=== PATIENT | female | born 1955 | race American Indian/Alaskan Native ===

== ENCOUNTER 2019-10-21 06:38 | Emergency (ER) | payer MEDICARE, OTHER ==
[2019-10-21 08:33] LABS: Basophils % (Auto) 0.7 % (0.0-1.8); Eosinophils % (Auto) 0.1 % (0.0-4.3); Hematocrit 39.6 % (30.3-42.9); Hemoglobin 12.6 gm/dl (10.1-14.3); Lymphocytes # (Auto) 1.7 K/mm3 (1.2-5.4); Lymphocytes % (Auto) 27.5 % (13.4-35.0); Mean Corpuscular HGB Conc 32 % (30-34); Mean Corpuscular Volume 72 fl (79-97); Monocytes # (Auto) 0.3 K/mm3 (0.0-0.8); Monocytes % (Auto) 4.6 % (0.0-7.3); Platelet Count 216 K/mm3 (140-440); Red Blood Count 5.51 M/mm3 (3.65-5.03); Red Cell Distribution Width 15.2 % (13.2-15.2)
--- NOTE | 2019-10-21 08:37 | XRay Report ---
CHEST 1 VIEW INDICATION: tachycardia. COMPARISON: None. FINDINGS: Support devices: None. Heart: Normal. Lungs/Pleura: No acute pulmonary or pleural findings. IMPRESSION: 1. No acute findings. Signer Name: Kyle Velazco MD Signed: 10/21/2019 8:33 AM Workstation Name: [id number]
[2019-10-21 08:44] LABS: BUN/Creatinine Ratio 12; Blood Urea Nitrogen 27 mg/dL (7-17); Calcium 9.8 mg/dL (8.4-10.2); Hemolysis Index 4
[2019-10-21] MEDS ORDERED: ACETAMINOPHEN 325 MG TAB PO ONE (08:56)
[2019-10-21 08:59] LABS: Bacteria,Urine 1+ /HPF (Negative); Bilirubin,Urine NEG (Negative); Blood,Urine NEG (Negative); Color,Urine Yellow (Yellow); Hyaline Casts,Urine 1 /LPF; Mucus,Urine 1+ /HPF; Urobilinogen,Urine < 2.0 mg/dL (<2.0)
[2019-10-21 09:21] LABS: Amphetamine Screen,Urine PRESUMPTIVE NEGATIVE; Cannabinoid Screen,Urine PRESUMPTIVE NEGATIVE; Cocaine Screen,Urine PRESUMPTIVE NEGATIVE; Methadone Screen,Urine PRESUMPTIVE NEGATIVE; Opiate Screen,Urine PRESUMPTIVE NEGATIVE
[2019-10-21 09:35] LABS: Benzodiazepines Screen,Urine PRESUMPTIVE POSITIVE
--- NOTE | 2019-10-21 09:45 | Emergency Department Report ---
ED General Adult HPI - General Chief complaint: Altered Mental Status Stated complaint: SUICIDAL THOUGHTS Time Seen by Provider: 10/21/19 07:43 Source: patient, family, EMS Mode of arrival: Stretcher Limitations: Altered Mental Status - History of Present Illness Initial comments: Patient presents with . reports patient with episode of altered mental status confusion this morning. Reports patient was answering questions with weird replies. Reports similar episodes when patient rode a train back to [place] where there are from. Reports that episode was thought to be related to UTI. Reports living in [facility]" for approximately 2 months. Reports patient unable to fill rx for fibromyalgia norco and ativan for anxiety since living here for 2 months because they have not established primary care. Reports he heard that ativan could cause confusion. Reports patient anxious. Denies drugs/alcohol. Denies SI/HI. Denies trauma. Reports hx of CKD with hx of polycystic kidney disease. reports patient has one kidney. Severity scale (0 -10): 9 - Related Data Home Medications Medication Instructions Recorded Confirmed Last Taken Valsartan [Diovan] 160 mg PO QDAY 07/28/14 07/28/14 Unknown Previous Rx's Medication Instructions Recorded Last Taken Type HYDROcodone/ACETAMINOPHEN [[place] 1 each PO Q6HR #20 tablet 07/28/14 Unknown Rx 5/325 Tablet] oxyCODONE /ACETAMINOPHEN [Percocet 1 tab PO Q6HR PRN #20 tablet 11/16/14 Unknown Rx 5/325 mg] HYDROcodone/APAP 5-325 [[place] 1 each PO Q6HR PRN #20 tablet 01/09/15 Unknown Rx 5/325] Promethazine [Phenergan] 25 mg PO Q6H PRN #30 tablet 01/09/15 Unknown Rx Allergies Allergy/AdvReac Type Severity Reaction Status Date / Time No Known Allergies Allergy Verified 08/30/13 14:42 ED Review of Systems ROS: Stated complaint: SUICIDAL THOUGHTS Other details as noted in HPI Other: GENERAL: No weight change, fatigue, fever, chills, or night sweats SKIN: No changes in skin or hair, no itching, no rashes, no jaundice HEAD: No trauma EYES: No blurriness, tearing, itching, acute visual loss, conjunctival discoloration, or scleral icterus EARS: No hearing loss, tinnitus, vertigo, or earache NOSE: No rhinorrhea, stuffiness, sneezing, itching, or epistaxis MOUTH: No bleeding gums, hoarseness, sore throat, or swelling CARDIAC: No new murmur, chest pain, palpitations, dyspnea on exertion, orthopnea, PND, or edema RESPIRATORY: No shortness of breath, wheeze, cough, sputum production, hemoptysis GI: No abdominal pain, nausea, vomiting, dysphagia, diarrhea, constipation, hematemesis, melena, hematochezia URINARY: No frequency, urgency, polyuria, dysuria, hematuria, or incontinence MUSCULOSKELETAL: No muscle weakness, joint stiffness, decrease in range of motion, redness, swelling NEUROLOGIC: Altered mental status. confusion. No headache, syncope, loss of sensation, numbness, tingling, tremors, weakness, paralysis, seizures HEMATOLOGIC: No anemia, easy bruising, bleeding, petechiae, or purpura ENDOCRINE: No hot or cold intolerance, sweating, polyuria, polydipsia or, polyphagia no thyroid problems PSYCHIATRIC: Anxiety. ED Past Medical Hx - Past Medical History Hx Hypertension: Yes Hx Kidney Stones: Yes Hx Psychiatric Treatment: Yes (Anxiety) Additional medical history: fibromyalgia, Polycystic Kidney disease - Surgical History Additional Surgical History: right kidney removed. hysterectomy. hernia repair - Social History Smoking Status: Never Smoker Substance Use Type: None - Medications Home Medications: Home Medications Medication Instructions Recorded Confirmed Last Taken Type HYDROcodone/ACETAMINOPHEN [[place] 1 each PO Q6HR #20 tablet 07/28/14 Unknown Rx 5/325 Tablet] Valsartan [Diovan] 160 mg PO QDAY 07/28/14 07/28/14 Unknown History oxyCODONE /ACETAMINOPHEN [Percocet 1 tab PO Q6HR PRN #20 tablet 11/16/14 Unknown Rx 5/325 mg] HYDROcodone/APAP 5-325 [[place] 1 each PO Q6HR PRN #20 tablet 01/09/15 Unknown Rx 5/325] Promethazine [Phenergan] 25 mg PO Q6H PRN #30 tablet 01/09/15 Unknown Rx ED Physical Exam - General Limitations: Altered Mental Status - Other Other exam information: GENERAL: Patient in no acute distress HEAD: Normocephalic, atraumatic EYES: PERRLA, EOM intact, no scleral icterus, no conjunctival hemorrhage, visual nguyễn and acuity wnl NOSE: No tenderness, discharge, sinus tenderness MOUTH: No erythema, bleeding, exudate HEART: Regular rate and rhythm, no murmur, S1-S2 are auscultated, no edema, pulses are symmetric LUNGS: No respiratory distress. Bilateral breath sounds, No tachypnea, No retractions, No wheezing, rales, rhonchi ABDOMEN: Normal bowel sounds, abdomen soft, no tenderness, no rebound, no guarding, no distention, no masses, no CVA tenderness MUSCULOSKELETAL: Normal joint range of motion, no redness, no swelling, no tenderness NEUROLOGIC: GCS 15, Alert and Oriented x3, Cranial nerves intact, normal sensation, normal strength, no cerebellar deficit, NIHSS 0 PSYCHIATRIC: Anxious. No homicidal or suicidal ideation, no hallucinations SKIN: Skin is warm and dry, no wounds, no rashes NEUROLOGIC: normal gait ED Course Vital Signs 10/21/19 06:53 Temperature 99.4 F Pulse Rate 98 H Respiratory 18 Rate Blood Pressure 137/75 O2 Sat by Pulse 95 Oximetry ED Medical Decision Making - Lab Data Result diagrams: 10/21/19 07:54 10/21/19 07:54 Laboratory Results - last 24 hr 10/21/19 10/21/19 10/21/19 07:54 07:54 08:13 WBC 6.2 RBC 5.51 H Hgb 12.6 Hct 39.6 MCV 72 L MCH 23 L MCHC 32 RDW 15.2 Plt Count 216 Lymph % (Auto) 27.5 [place] % (Auto) 4.6 Eos % (Auto) 0.1 Baso % (Auto) 0.7 Lymph # 1.7 [place] # 0.3 Eos # 0.0 Baso # 0.0 Seg Neutrophils % 67.1 Seg Neutrophils # 4.1 Sodium 134 L Potassium 4.2 Chloride 96.8 L Carbon Dioxide 16 L Anion Gap 25 BUN 27 H Creatinine 2.3 H Estimated GFR 26 BUN/Creatinine Ratio 12 Glucose 84 POC Glucose 77 Calcium 9.8 Troponin T < 0.010 Urine Color Urine Turbidity Urine pH Ur Specific [place] Urine Protein Urine Glucose (UA) Urine Ketones Urine Blood Urine Nitrite Urine Bilirubin Urine Urobilinogen Ur Leukocyte Esterase Urine WBC (Auto) Urine RBC (Auto) U Epithel Cells (Auto) Urine Bacteria (Auto) Hyaline Casts Urine Mucus Urine Opiates Screen Urine Methadone Screen Ur Barbiturates Screen Ur Phencyclidine Scrn Ur Amphetamines Screen U Benzodiazepines Scrn Urine Cocaine Screen U Marijuana (THC) Screen Drugs of Abuse Note 10/21/19 10/21/19 08:41 08:41 WBC RBC Hgb Hct MCV MCH MCHC RDW Plt Count Lymph % (Auto) [place] % (Auto) Eos % (Auto) Baso % (Auto) Lymph # [place] # Eos # Baso # Seg Neutrophils % Seg Neutrophils # Sodium Potassium Chloride Carbon Dioxide Anion Gap BUN Creatinine Estimated GFR BUN/Creatinine Ratio Glucose POC Glucose Calcium Troponin T Urine Color Yellow Urine Turbidity Clear Urine pH 5.0 Ur Specific [place] 1.019 Urine Protein 100 mg/dl Urine Glucose (UA) Neg Urine Ketones 20 Urine Blood Neg Urine Nitrite Neg Urine Bilirubin Neg Urine Urobilinogen < 2.0 Ur Leukocyte Esterase Tr Urine WBC (Auto) 4.0 Urine RBC (Auto) 3.0 U Epithel Cells (Auto) 1.0 Urine Bacteria (Auto) 1+ Hyaline Casts 1 Urine Mucus 1+ Urine Opiates Screen Presumptive negative Urine Methadone Screen Presumptive negative Ur Barbiturates Screen Presumptive negative Ur Phencyclidine Scrn Presumptive negative Ur Amphetamines Screen Presumptive negative U Benzodiazepines Scrn Presumptive positive Urine Cocaine Screen Presumptive negative U Marijuana (THC) Screen Presumptive negative Drugs of Abuse Note Disclamer - EKG Data When compared to previous EKG there are: no significant change - Radiology Data Radiology results: report reviewed - Medical Decision Making Patient comfortable. Updated with results. Recommend possibly other anxiolytics besides benzos. Recommend close outpatient follow up. Plan discharge with outpatient follow up. Return if any worsening. Critical care attestation.: If time is entered above; I have spent that time in minutes in the direct care of this critically ill patient, excluding procedure time. ED Disposition Clinical Impression: Anxiety Altered mental status Qualifiers: Altered mental status type: unspecified Qualified Code(s): R41.82 - Altered mental status, unspecified Medication reaction Qualifiers: Encounter type: initial encounter Qualified Code(s): T50.905A - Adverse effect of unspecified drugs, medicaments and biological substances, initial encounter CKD (chronic kidney disease) Qualifiers: Chronic kidney disease stage: unspecified stage Qualified Code(s): N18.9 - Chronic kidney disease, unspecified Disposition: DC-01 TO HOME OR SELFCARE Is pt being admited?: No Condition: Stable Instructions: Altered Mental Status (ED), Chronic Kidney Disease (ED), Anxiety (ED) Referrals: KENYATTA CHING MD [Other] - 2-3 Days [facility] [Outside] - 2-3 Days [facility] [Outside] - 2-3 Days MARIYA PAINTING MD [Staff Physician] - 2-3 Days DON PAPPAS MD [Staff Physician] - 2-3 Days
[2019-10-21 10:01] VITALS: BP 132/72
== END 2019-10-21 10:03 | disposition home or self-care (01) ==
LOC: ED 06:38
DX: F41.9 Anxiety disorder, unspecified (principal); R41.82 Altered mental status, unspecified; T50.905A Adverse effect of unspecified drugs, medicaments and biological substances, initial encounter; N18.9 Chronic kidney disease, unspecified; I10 Essential (primary) hypertension; N20.0 Calculus of kidney; Z90.710 Acquired absence of both cervix and uterus; Z98.890 Other specified postprocedural states; Z79.899 Other long term (current) drug therapy
CPT/HCPCS: 36415; 71045; 80048; 80307; 81001; 82962; 84484; 85025; 87086; 93005; 93010